=== PATIENT | male | born 1950 | race Caucasian/White ===

== ENCOUNTER → 2016-12-22 | Outpatient (CLI) | payer MEDICARE ==
[~2016-12-22] MED LIST: OMNIPAQUE 350 MG/ML, 75ML BOTTLE ONE
== END | disposition home or self-care (01) ==
LOC: CFH 08:42
PROVIDERS: ATTEND Internal Medicine Pulmonary Disease
DX: I48.0 Paroxysmal atrial fibrillation (principal); I27.2 Other secondary pulmonary hypertension; G47.30 Sleep apnea, unspecified; Q89.09 Congenital malformations of spleen; R63.4 Abnormal weight loss
CPT/HCPCS: 71260; Q9967

== ENCOUNTER → 2017-02-05 | Outpatient (CLI) | payer MEDICARE ==
[~2017-02-05] MED LIST changes: +ACET-1600 PO; +ASPI-496 PO; +ATOR10TA PO; +CHLO25TA PO; +GABA300C10 PO; +LOSA25TA5 PO; +MELO-184 PO; +MULT-208 PO; -OMNIPAQUE 350 MG/ML, 75ML BOTTLE ONE; +PANT40TA5 PO; +PARO20TA4 PO; +SITA25TA PO; +TRAM50TA2 PO; +VERA180C2 PO
== END | disposition home or self-care (01) ==
LOC: CFH 10:35
PROVIDERS: ATTEND Family Medicine
DX: Z13.6 Encounter for screening for cardiovascular disorders (principal); I77.811 Abdominal aortic ectasia
CPT/HCPCS: 93978

== ENCOUNTER → 2017-03-05 | Outpatient (CLI) | payer MEDICARE | END | disposition home or self-care (01) | LOC: CVU 08:58 | PROVIDERS: ATTEND Internal Medicine Cardiovascular Disease | DX: I48.0 Paroxysmal atrial fibrillation (principal); I10 Essential (primary) hypertension | CPT/HCPCS: 93306 ==

== ENCOUNTER 2017-08-13 14:04 | Inpatient (IN) | payer MEDICARE ==
[~2017-08-13] VITALS: Ht 185.4 cm; Wt 113.0 kg
[~2017-08-13 14:04] MED LIST changes: -MELO-184 PO; +MELO15TA24 PO
[2017-08-13 15:18] LABS: BASOPHILS # (AUTO) 0.03 x10^3/uL (0-0.1); BASOPHILS % (AUTO) 0 % (0-1); EOSINOPHILS # (AUTO) 0.27 x10^3/uL (0-0.4); EOSINOPHILS % (AUTO) 4 % (1-7); LYMPHOCYTES # (AUTO) 1.79 x10^3/uL (1-3.4); LYMPHOCYTES % (AUTO) 24 % (22-44); MD NO; MEAN CORPUSCULAR HEMOGLOBIN 28.7 pg (27.5-34.5); MEAN CORPUSCULAR VOLUME 84.4 fL (81-97); MEAN PLATELET VOLUME 9.9 fL (7.4-10.4); MONOCYTES % (AUTO) 10 % (2-9); NEUTROPHILS % (AUTO) 62 % (42-75); PLATELET COUNT 219 x10^3/uL (130-400); RED BLOOD COUNT 5.22 x10^6/uL (4.38-5.82); RED CELL DISTRIBUTION WIDTH 14.2 % (9.4-14.8)
[2017-08-13] MEDS ORDERED: OXYC1TAB7 PO (15:26)
[2017-08-13] MEDS ORDERED: KRIL500C PO (15:26)
[2017-08-13] MEDS ORDERED: CYCL-259 PO (15:26)
[2017-08-13] MEDS ORDERED: LACT1CAP20 PO (15:26)
[2017-08-13 16:30] LABS: ALBUMIN 3.8 g/dL (3.4-5.0); CALCIUM 9.1 mg/dL (8.5-10.1); CHLORIDE 103 mmol/L (98-107)
[2017-08-13 16:34] LABS: ALANINE AMINOTRANSFERASE 35 U/L (12-78); ALKALINE PHOSPHATASE 97 U/L (45-117); ANION GAP 10 mmol/L (5-15); BILIRUBIN,TOTAL 0.5 mg/dL (0.2-1.0); CREATININE 1.11 mg/dL (0.7-1.3); TOTAL PROTEIN 8.2 g/dL (6.4-8.2)
[2017-08-13] MEDS ORDERED: GADOBUTROL 10 MMOL/10 ML PFS ONE (17:37)
[2017-08-13] MEDS ORDERED: ONDANSETRON ODT 4 MG PO PRN (22:00)
[2017-08-13] MEDS ORDERED: ACETAMINOPHEN 325 MG TABLET PO PRN (22:00)
[2017-08-13] MEDS ORDERED: TEMAZEPAM 15 MG CAPSULE PO PRN (22:00)
[2017-08-13] MEDS ORDERED: ENALAPRILAT 1.25 MG/ML, 2ML IVPush PRN (22:00)
[2017-08-13] MEDS ORDERED: CYCLOBENZAPRINE 10 MG TABLET PO PRN (22:00)
[2017-08-13] MEDS ORDERED: DOCUSATE 100 MG CAPSULE PO PRN (22:00)
[2017-08-13] MEDS: PANTOPROZOLE 40MG TABLET PO SCH (23:31)
[2017-08-13] MEDS: GABAPENTIN 300 MG CAPSULE PO SCH (23:31)
[2017-08-13] MEDS: ENOXAPARIN 40 MG/0.4 ML SQ SCH (23:31)
[2017-08-13] MEDS: ATORVASTATIN 10 MG TABLET PO SCH (23:31)
[2017-08-13 23:45] VITALS: BP 113/75
[2017-08-14] VITALS (9 sets, daily range): BP systolic 103–130; BP diastolic 69–83
[2017-08-14] MEDS ORDERED: GADOBUTROL 10 MMOL/10 ML VIAL ONE (11:18)
[2017-08-14] MEDS: OMEGA-3/FISH OIL CAPSULE PO SCH (11:19)
[2017-08-14] MEDS: PAROXETINE 20 MG TABLET PO SCH (11:19)
[2017-08-14] MEDS: MULTIVITAMIN 1 TABLET PO SCH (11:19)
[2017-08-14] MEDS: ASPIRIN 81 MG TABLET EC PO SCH (11:20)
[2017-08-14] MEDS: PANTOPROZOLE 40MG TABLET PO SCH ×2 (11:20→21:09)
[2017-08-14] MEDS: VERAPAMIL ER 180MG TABLET.ER PO SCH (11:20)
[2017-08-14] MEDS: LOSARTAN 25MG TABLET PO SCH (11:20)
[2017-08-14] MEDS: GABAPENTIN 300 MG CAPSULE PO SCH ×3 (11:21→21:09)
[2017-08-14] MEDS: CHLORTHALIDONE 25 MG TABLET PO SCH (11:21)
[2017-08-14] MEDS: MELOXICAM 15 MG TABLET PO SCH (11:21)
[2017-08-14] MEDS: LACTOBACILLUS CHEW TABLET PO SCH (11:21)
[2017-08-14 16:48] LABS: CLOSTRIDIUM DIFFICILE ANTIGEN NEGATIVE; CLOSTRIDIUM DIFFICILE TOXIN NEGATIVE (Negative)
[2017-08-14] MEDS ORDERED: GADOBUTROL 10 MMOL/10 ML PFS ONE (18:29)
[2017-08-14] MEDS: ATORVASTATIN 10 MG TABLET PO SCH (21:09)
[2017-08-14] MEDS: ENOXAPARIN 40 MG/0.4 ML SQ SCH (21:09)
[2017-08-15 03:46] VITALS: BP 112/74
[2017-08-15 05:13] LABS: ANION GAP 10 mmol/L (5-15); CALCIUM 8.4 mg/dL (8.5-10.1); CHLORIDE 104 mmol/L (98-107); CREATININE 1.03 mg/dL (0.7-1.3)
[2017-08-15] MEDS ORDERED: POTASSIUM CHLORIDE 20 MEQ TAB.ER.PRT PO ONE (07:30)
[2017-08-15 08:19] VITALS: BP 118/79
[2017-08-15 08:20] VITALS: BP 103/66
[2017-08-15 08:21] VITALS: BP 114/79
[2017-08-15] MEDS: VERAPAMIL ER 180MG TABLET.ER PO SCH (08:27)
[2017-08-15] MEDS: MULTIVITAMIN 1 TABLET PO SCH (08:28)
[2017-08-15] MEDS: PAROXETINE 20 MG TABLET PO SCH (08:28)
[2017-08-15] MEDS: OMEGA-3/FISH OIL CAPSULE PO SCH (08:28)
[2017-08-15] MEDS: ASPIRIN 81 MG TABLET EC PO SCH (08:28)
[2017-08-15] MEDS: LOSARTAN 25MG TABLET PO SCH (08:28)
[2017-08-15] MEDS: GABAPENTIN 300 MG CAPSULE PO SCH (08:28)
[2017-08-15] MEDS: LACTOBACILLUS CHEW TABLET PO SCH (08:28)
[2017-08-15] MEDS: PANTOPROZOLE 40MG TABLET PO SCH (08:28)
[2017-08-15] MEDS: MELOXICAM 15 MG TABLET PO SCH (08:28)
[2017-08-15] MEDS: CHLORTHALIDONE 25 MG TABLET PO SCH (08:31)
[2017-08-15 09:45] LABS: MEAN CORPUSCULAR HEMOGLOBIN 28.2 pg (27.5-34.5); MEAN CORPUSCULAR HGB CONC 33.5 g/dL (33.2-36.2); MEAN CORPUSCULAR VOLUME 83.9 fL (81-97); RED BLOOD COUNT 4.79 x10^6/uL (4.38-5.82); RED CELL DISTRIBUTION WIDTH 14.5 % (9.4-14.8)
[2017-08-15 09:46] LABS: MD YES
[2017-08-15 09:48] LABS: EOS#(MANUAL) 0.32 x10^3/uL (0.0-0.4); EOS% (MANUAL) 4 % (1-7); LYMPH#(MANUAL) 1.66 x10^3/uL (1-3.4); LYMPHS% (MANUAL) 21 % (22-44); MONOS#(MANUAL) 0.16 x10^3/uL (0.3-2.7); MONOS% (MANUAL) 2 % (2-9); SEG#(MANUAL) 5.77 x10^3/uL (1.8-6.8); SEGS% (MANUAL) 73 % (42-75)
[2017-08-15 09:49] LABS: <RBC MORPHOLOGY> NORMAL
[2017-08-15 09:56] LABS: <PLATELET ESTIMATE> ADEQUATE
[2017-08-15] MEDS ORDERED: TRAM50TA2 PO (12:12)
[2017-08-15] MEDS ORDERED: PNEUMOCOCCAL 23 VACCINE IM-VACC ONE (12:30)
[2017-08-15 13:03] VITALS: BP 122/82
== END 2017-08-15 14:22 | disposition home or self-care (01) | DRG 920 ==
LOC: ED 19:57 → EDIP 22:39 → 3NE 23:05 → DCLOUNGE 08-15 14:10
PROVIDERS: ADMIT Family Medicine; ATTEND Family Medicine
DX: G97.63 Postprocedural seroma of a nervous system organ or structure following a nervous system procedure (principal); F33.0 Major depressive disorder, recurrent, mild; I48.2 Chronic atrial fibrillation; E11.69 Type 2 diabetes mellitus with other specified complication; G62.9 Polyneuropathy, unspecified; E11.40 Type 2 diabetes mellitus with diabetic neuropathy, unspecified; I48.91 Unspecified atrial fibrillation; E78.5 Hyperlipidemia, unspecified; G96.0 Cerebrospinal fluid leak; R27.0 Ataxia, unspecified; M51.37 Other intervertebral disc degeneration, lumbosacral region; I11.9 Hypertensive heart disease without heart failure; E87.6 Hypokalemia; K21.9 Gastro-esophageal reflux disease without esophagitis; Z82.49 Family history of ischemic heart disease and other diseases of the circulatory system; Z87.891 Personal history of nicotine dependence; Z82.61 Family history of arthritis; E86.0 Dehydration; K52.9 Noninfective gastroenteritis and colitis, unspecified
CPT/HCPCS: 36415; 70544; 70549; 70551; 70552; 72158; 80048; 80053; 85025; 87324; 90732; 93005; 99285; A9585; J1650

== ENCOUNTER 2018-08-14 15:37 | Observation (INO) | payer MEDICARE ==
[~2018-08-14] VITALS: Ht 185.4 cm; Wt 112.5 kg
[~2018-08-14 15:37] MED LIST changes: +CYCL-259 PO; +KRIL500C PO; +LACT1CAP20 PO; +LOSA25TA25 PO; -LOSA25TA5 PO; +OXYC1TAB7 PO
--- NOTE | 2018-08-14 16:10 | NUR ---
ERP at BS for consult
[2018-08-14 16:25] LABS: ALBUMIN 3.8 g/dL (3.4-5.0); ANION GAP 10 mmol/L (5-15); CALCIUM 9.5 mg/dL (8.5-10.1); CHLORIDE 104 mmol/L (98-107)
[2018-08-14 16:30] LABS: ALANINE AMINOTRANSFERASE 28 U/L (12-78); ALKALINE PHOSPHATASE 129 U/L (45-117); BILIRUBIN,TOTAL 0.5 mg/dL (0.2-1.0); CREATININE 1.14 mg/dL (0.7-1.3); TOTAL PROTEIN 7.9 g/dL (6.4-8.2); TROPONIN I < 0.015 ng/mL (0.000-0.045)
[2018-08-14 16:41] LABS: INTERNATIONAL NORMALIZED RATIO 0.98 (0.93-1.1); PROTHROMBIN TIME 10.4 Seconds (9.6-11.5)
[2018-08-14] MEDS ORDERED: METF500T17 PO (17:22)
--- NOTE | 2018-08-14 18:04 | NUR ---
pt laying on gurney awake & calm, responds approp to staff, NAD, comfort measures provided, call light within reach.
--- NOTE | 2018-08-14 18:15 | NUR ---
pt to CTA
--- NOTE | 2018-08-14 18:25 | NUR ---
pt returned from CTA, family returned to BS.
[2018-08-14] MEDS ORDERED: OMNIPAQUE 350 MG/ML, 100ML BOTTLE ONE (18:36)
[2018-08-14] MEDS ORDERED: OXYcodone/APAP 5/325MG TABLET ONE (18:42)
--- NOTE | 2018-08-14 18:54 | NUR ---
REPORT GIVEN TO LEAH
[2018-08-14] MEDS ORDERED: OXYcodone/APAP 5/325MG TABLET PO ONE (19:00)
--- NOTE | 2018-08-14 19:00 | NUR ---
RECEIVED REPORT FROM CESAR ESCOBEDO. PT RESTING CALMLY IN BED, FAMILY AT BEDSIDE. PT LABS AND CTA REMAIN PENDING. PT AWARE OF PENDING ADMIT. PT ON ALL MONITORS, VSS. WILL CONTINUE TO MONITOR.
--- NOTE | 2018-08-14 19:17 | NUR ---
[facility] PENDING, LAB CONTACTED, STATED THEY ARE ACTIVELY WORKING ON IT, SHOULD RESULT SHORTLY.
[2018-08-14 19:19] LABS: MEAN CORPUSCULAR HEMOGLOBIN 28.3 pg (27.5-34.5); MEAN CORPUSCULAR HGB CONC 33.9 g/dL (33.2-36.2); MEAN CORPUSCULAR VOLUME 83.5 fL (81-97); RED BLOOD COUNT 4.55 x10^6/uL (4.38-5.82); RED CELL DISTRIBUTION WIDTH 14.5 % (9.4-14.8)
[2018-08-14 19:20] LABS: MD YES
[2018-08-14 19:22] LABS: EOS#(MANUAL) 0.07 x10^3/uL (0.0-0.4); EOS% (MANUAL) 1 % (1-7); LYMPH#(MANUAL) 1.43 x10^3/uL (1-3.4); LYMPHS% (MANUAL) 22 % (22-44); MONOS#(MANUAL) 0.39 x10^3/uL (0.3-2.7); MONOS% (MANUAL) 6 % (2-9); SEG#(MANUAL) 4.62 x10^3/uL (1.8-6.8); SEGS% (MANUAL) 71 % (42-75)
[2018-08-14 19:23] LABS: <RBC MORPHOLOGY> NORMAL
[2018-08-14 20:22] LABS: <PLATELET ESTIMATE> ADEQUATE; <PLT MORPHOLOGY> NORMAL PLT MORPH; MEAN PLATELET VOLUME 8.5 fL (7.4-10.4)
--- NOTE | 2018-08-14 20:24 | NUR ---
ATTEMPTED TO CALL REPORT TO ARJUN RN 5TH FLOOR. RN UNAVAILABLE, STATED WOULD CALL BACK IN 5 MIN
--- NOTE | 2018-08-14 20:41 | NUR ---
REPORT TO ARJUN ESCOBEDO FOR ROOM 501
[2018-08-14 21:00] VITALS: BP 136/83
[2018-08-14] MEDS ORDERED: PAROXETINE 20 MG TABLET PO SCH (21:00)
[2018-08-14] MEDS: SODIUM CHLORIDE 0.9% 1,000 ML IV SCH (22:09)
[2018-08-14] MEDS ORDERED: OXYcodone IR 5MG TABLET PO PRN (22:30)
[2018-08-14] MEDS ORDERED: ONDANSETRON ODT 4 MG PO PRN (22:30)
[2018-08-14] MEDS ORDERED: POTASSIUM CHLORIDE 20 MEQ TAB.ER.PRT PO ONE (22:30)
[2018-08-14] MEDS ORDERED: PROMETHAZINE 25 MG/ML, 1ML IM PRN (22:30)
[2018-08-14] MEDS ORDERED: ATORVASTATIN 10 MG TABLET PO SCH (22:30)
[2018-08-14] MEDS ORDERED: BISACODYL 10 MG SUPP PR PRN (22:30)
[2018-08-14] MEDS ORDERED: NITROGLYCERIN 0.4 MG BOTTLE (25 TABS) SL PRN (22:30)
[2018-08-14] MEDS ORDERED: ONDANSETRON 2MG/ML, 2ML IVPush PRN (22:30)
[2018-08-14] MEDS ORDERED: morphine SULFATE 10 MG/ML, 1ML IVPush PRN (22:30)
[2018-08-14] MEDS ORDERED: hydrALAzine 20 MG/ML, 1ML IVPush PRN (22:30)
[2018-08-14] MEDS ORDERED: POLYETHYLENE GLYCOL 17 GM PACKET PO PRN (22:30)
[2018-08-14] MEDS ORDERED: DOCUSATE 100 MG CAPSULE PO PRN (22:30)
[2018-08-14] MEDS ORDERED: ACETAMINOPHEN 325 MG TABLET PO PRN (22:30)
[2018-08-14] MEDS ORDERED: OXYcodone/APAP 5/325MG TABLET PO PRN (23:00)
[2018-08-14 23:37] LABS: HEMOGLOBIN A1C 6.4 % (4.2-6.3)
[2018-08-14 23:40] LABS: FREE T4 (FREE THYROXINE) 0.84 ng/dL (0.76-1.46); THYROID STIMULATING HORMONE 0.755 mIU/L (0.358-3.740)
[2018-08-14] MEDS: GABAPENTIN 300 MG CAPSULE PO SCH (23:41)
[2018-08-14] MEDS: HEPARIN 5,000 UNITS/ML, 1ML SQ SCH (23:42)
[2018-08-15 01:14] VITALS: BP 123/73
[2018-08-15 01:44] LABS: TROPONIN I < 0.015 ng/mL (0.000-0.045)
[2018-08-15 05:15] LABS: CALCIUM 8.4 mg/dL (8.5-10.1); CHLORIDE 105 mmol/L (98-107)
[2018-08-15 05:18] LABS: MICROSCOPIC NOT IND
[2018-08-15 05:24] LABS: ALANINE AMINOTRANSFERASE 24 U/L (12-78); ALBUMIN 3.3 g/dL (3.4-5.0); ALKALINE PHOSPHATASE 113 U/L (45-117); ANION GAP 9 mmol/L (5-15); BILIRUBIN,TOTAL 0.3 mg/dL (0.2-1.0); CHOL/HDL RATIO 3.5; CHOLESTEROL, TOTAL 123 mg/dL (140-239); CREATININE 1.08 mg/dL (0.7-1.3); HDL CHOL % 28 % (26-37); HDL CHOLESTEROL (DIRECT) 35 mg/dL (40-60); LDL CHOLESTEROL,CALCULATED 14 mg/dL (54-169); LDL/HDL RATIO 0.4 (0.5-3.0); TOTAL PROTEIN 6.7 g/dL (6.4-8.2); TRIGLYCERIDES 368 mg/dL (50-200); TROPONIN I < 0.015 ng/mL (0.000-0.045); VLDL CHOLESTEROL 74 mg/dL (0-25)
[2018-08-15 05:25] LABS: CULTURE INDICATED? NO
[2018-08-15] MEDS ORDERED: ASPIRIN 81 MG TABLET EC PO SCH (06:00)
[2018-08-15] MEDS ORDERED: PANTOPROZOLE 40MG TABLET PO SCH (06:00)
[2018-08-15] MEDS ORDERED: ASPIRIN 325 MG TABLET EC PO SCH (06:00)
[2018-08-15 07:24] LABS: MEAN CORPUSCULAR HEMOGLOBIN 28.9 pg (27.5-34.5); MEAN CORPUSCULAR HGB CONC 34.6 g/dL (33.2-36.2); MEAN CORPUSCULAR VOLUME 83.6 fL (81-97); RED BLOOD COUNT 4.21 x10^6/uL (4.38-5.82); RED CELL DISTRIBUTION WIDTH 14.1 % (9.4-14.8)
[2018-08-15 07:31] LABS: BASOPHILS # (AUTO) 0.05 x10^3/uL (0-0.1); BASOPHILS % (AUTO) 1 % (0-1); EOSINOPHILS # (AUTO) 0.36 x10^3/uL (0-0.4); EOSINOPHILS % (AUTO) 7 % (1-7); LYMPHOCYTES # (AUTO) 2.25 x10^3/uL (1-3.4); LYMPHOCYTES % (AUTO) 41 % (22-44); MD SCAN; MONOCYTES # (AUTO) 0.44 x10^3/uL (0.2-0.8); MONOCYTES % (AUTO) 8 % (2-9); NEUTROPHILS # (AUTO) 2.44 x10^3/uL (1.8-6.8); NEUTROPHILS % (AUTO) 44 % (42-75)
[2018-08-15] MEDS ORDERED: REGADENOSON 0.4 MG/5 ML SYRINGE ONE (08:29)
[2018-08-15 08:30] VITALS: BP 111/74
[2018-08-15] MEDS: HEPARIN 5,000 UNITS/ML, 1ML SQ SCH ×2 (08:42→16:00)
[2018-08-15] MEDS: GABAPENTIN 300 MG CAPSULE PO SCH (08:43)
[2018-08-15] MEDS: INSULIN LISPRO 100 UNITS/ML, PEN SQ-INSULIN SCH ×3 (08:44→16:00)
[2018-08-15] MEDS: SODIUM CHLORIDE 0.9% 1,000 ML IV SCH (08:44)
[2018-08-15] MEDS ORDERED: LACTOBACILLUS CHEW TABLET PO SCH (09:00)
[2018-08-15] MEDS ORDERED: CHLORTHALIDONE 25 MG TABLET PO SCH (09:00)
[2018-08-15] MEDS ORDERED: TEMPLATE NON-FORMULARY MED. (Krill Oil 500 MG) PO SCH (09:00)
[2018-08-15] MEDS ORDERED: VERAPAMIL ER 180MG TABLET.ER PO SCH (09:00)
[2018-08-15] MEDS ORDERED: LOSARTAN 25MG TABLET PO SCH (09:00)
[2018-08-15] MEDS ORDERED: MULTIVITAMIN 1 TABLET PO SCH (09:00)
[2018-08-15] MEDS ORDERED: MAGNESIUM SULFATE PMX 2GM/50ML 50 ML IV ONE (10:00)
[2018-08-15] MEDS ORDERED: POTASSIUM CHLORIDE 20 MEQ TAB.ER.PRT PO ONE (10:00)
[2018-08-15 10:06] LABS: MEAN CORPUSCULAR HGB CONC 33.2 g/dL (33.2-36.2); MEAN CORPUSCULAR VOLUME 84.1 fL (81-97); RED BLOOD COUNT 4.38 x10^6/uL (4.38-5.82); RED CELL DISTRIBUTION WIDTH 14.6 % (9.4-14.8)
[2018-08-15 10:07] LABS: BASOPHILS # (AUTO) 0.04 x10^3/uL (0-0.1); BASOPHILS % (AUTO) 1 % (0-1); EOSINOPHILS # (AUTO) 0.36 x10^3/uL (0-0.4); EOSINOPHILS % (AUTO) 6 % (1-7); LYMPHOCYTES # (AUTO) 2.26 x10^3/uL (1-3.4); LYMPHOCYTES % (AUTO) 39 % (22-44); MD SCAN; MONOCYTES # (AUTO) 0.46 x10^3/uL (0.2-0.8); MONOCYTES % (AUTO) 8 % (2-9); NEUTROPHILS # (AUTO) 2.67 x10^3/uL (1.8-6.8); NEUTROPHILS % (AUTO) 46 % (42-75)
[2018-08-15 13:15] VITALS: BP 112/73
== END 2018-08-15 16:45 | disposition home or self-care (01) ==
LOC: ED 17:03 → EDIP 19:45 → INTOOBSV 19:45 → 5SO 20:52 → DCLOUNGE 08-15 16:33
PROVIDERS: ADMIT Internal Medicine; ATTEND Internal Medicine
DX: R07.89 Other chest pain (principal); E11.40 Type 2 diabetes mellitus with diabetic neuropathy, unspecified; D68.69 Other thrombophilia; E87.6 Hypokalemia; E78.5 Hyperlipidemia, unspecified; F41.9 Anxiety disorder, unspecified; I11.9 Hypertensive heart disease without heart failure; I48.2 Chronic atrial fibrillation; K21.9 Gastro-esophageal reflux disease without esophagitis; M47.9 Spondylosis, unspecified; Z87.891 Personal history of nicotine dependence
CPT/HCPCS: 36415; 71045; 71275; 78452; 80053; 80061; 81003; 82962; 83036; 83735; 84439; 84443; 84484; 85025; 85379; 85610; 85730; 87040; 93005; 93017; 93306; 96365; 96366; 96372; 99284; A9502; C9898; G0378; J1644; J2785; J3475; J7030; Q9967; 99285

== ENCOUNTER 2018-12-09 13:56 | Emergency (ER) | payer MEDICARE ==
[~2018-12-09] VITALS: Ht 185.4 cm; Wt 118.1 kg
[~2018-12-09 13:56] MED LIST changes: +METF500T17 PO
[2018-12-09] MEDS ORDERED: SODIUM CHLORIDE FLUSH 10ML SYR IVF ONE (14:30)
--- NOTE | 2018-12-09 14:34 | NUR ---
Assumed care of patient. C/O increased HR and SOB today. Patient states, "I can feel that I'm having PVCs". Patient states his HR is normally in the 60s, but has been mostly 80-90s today. Hx afib with RVR and PSVT. Placed on NIBP, pulse ox and pvc monitor. Will continue to monitor.
[2018-12-09 14:36] LABS: ALBUMIN 3.8 g/dL (3.4-5.0); ANION GAP 12 mmol/L (5-15); CALCIUM 9.2 mg/dL (8.5-10.1); CHLORIDE 105 mmol/L (98-107)
[2018-12-09 14:40] LABS: CREATININE 1.38 mg/dL (0.7-1.3)
[2018-12-09 14:41] LABS: ALANINE AMINOTRANSFERASE 34 U/L (12-78); ALKALINE PHOSPHATASE 91 U/L (45-117); BILIRUBIN,TOTAL 0.5 mg/dL (0.2-1.0); TOTAL PROTEIN 7.5 g/dL (6.4-8.2); TROPONIN I < 0.015 ng/mL (0.000-0.045)
[2018-12-09] MEDS ORDERED: DILT180C72 PO (14:51)
[2018-12-09] MEDS ORDERED: RIVA20TA PO (14:51)
[2018-12-09 15:24] LABS: MEAN CORPUSCULAR HEMOGLOBIN 29.1 pg (27.5-34.5); MEAN CORPUSCULAR HGB CONC 33.7 g/dL (33.2-36.2); MEAN CORPUSCULAR VOLUME 86.4 fL (81-97); MEAN PLATELET VOLUME 10.9 fL (7.4-10.4); PLATELET COUNT 203 x10^3/uL (130-400); RED BLOOD COUNT 5.19 x10^6/uL (4.38-5.82); RED CELL DISTRIBUTION WIDTH 15.3 % (9.4-14.8)
[2018-12-09 15:28] LABS: BASOPHILS # (AUTO) 0.03 x10^3/uL (0-0.1); BASOPHILS % (AUTO) 0 % (0-1); EOSINOPHILS # (AUTO) 0.25 x10^3/uL (0-0.4); EOSINOPHILS % (AUTO) 3 % (1-7); LYMPHOCYTES # (AUTO) 2.17 x10^3/uL (1-3.4); LYMPHOCYTES % (AUTO) 28 % (22-44); MD SCAN; MONOCYTES # (AUTO) 0.66 x10^3/uL (0.2-0.8); MONOCYTES % (AUTO) 8 % (2-9); NEUTROPHILS # (AUTO) 4.77 x10^3/uL (1.8-6.8); NEUTROPHILS % (AUTO) 61 % (42-75)
[2018-12-09 16:37] VITALS: BP 135/81
--- NOTE | 2018-12-09 16:47 | NUR ---
TASK RN: PROVIDER ASKED TO UPDATE FAMILY.
--- NOTE | 2018-12-09 17:16 | NUR ---
Patient/Caregiver given discharge instructions and they have confirmed that they understand the instructions. Patient ambulatory with steady gait.
== END 2018-12-09 17:16 | disposition home or self-care (01) ==
LOC: ED 17:05
DX: J18.9 Pneumonia, unspecified organism (principal); I10 Essential (primary) hypertension; E11.9 Type 2 diabetes mellitus without complications; I48.91 Unspecified atrial fibrillation
CPT/HCPCS: 36415; 71045; 80053; 84484; 85025; 93005; 99284

== ENCOUNTER 2018-12-10 23:39 | Inpatient (IN) | payer MEDICARE ==
[~2018-12-10] VITALS: Ht 185.4 cm; Wt 114.7 kg
[~2018-12-10 23:39] MED LIST changes: +DILT180C72 PO; +RIVA20TA PO
[2018-12-11] MEDS ORDERED: SODIUM CHLORIDE FLUSH 10ML SYR IVF ONE (00:30)
--- NOTE | 2018-12-11 00:36 | NUR ---
Pt reports feeling palpitations, pt on monitor, in and out of a-fib, PA and aware. Pt anticoagulated, pt states "Im very sensitive to the feeling and it makes me nervous at home" Pt reports anxiety from feeling himself go in and out of a-fib, hx of cardioversion, pt denies pain.
[2018-12-11 00:41] LABS: ALANINE AMINOTRANSFERASE 34 U/L (12-78); ANION GAP 13 mmol/L (5-15); CALCIUM 9.2 mg/dL (8.5-10.1); CHLORIDE 101 mmol/L (98-107); CREATININE 1.24 mg/dL (0.7-1.3)
[2018-12-11 00:45] LABS: MEAN CORPUSCULAR HGB CONC 32.1 g/dL (33.2-36.2); MEAN CORPUSCULAR VOLUME 87.1 fL (81-97); MEAN PLATELET VOLUME 10.2 fL (7.4-10.4); PLATELET COUNT 162 x10^3/uL (130-400); RED BLOOD COUNT 5.17 x10^6/uL (4.38-5.82); RED CELL DISTRIBUTION WIDTH 15.1 % (9.4-14.8)
[2018-12-11 00:46] LABS: ALKALINE PHOSPHATASE 86 U/L (45-117); BILIRUBIN,TOTAL 0.2 mg/dL (0.2-1.0); TOTAL PROTEIN 7.6 g/dL (6.4-8.2); TROPONIN I < 0.015 ng/mL (0.000-0.045)
[2018-12-11] MEDS ORDERED: POTASSIUM CHLORIDE 20 MEQ TAB.ER.PRT PO ONE (01:00)
[2018-12-11 01:11] LABS: BASOPHILS # (AUTO) 0.04 x10^3/uL (0-0.1); BASOPHILS % (AUTO) 1 % (0-1); EOSINOPHILS # (AUTO) 0.24 x10^3/uL (0-0.4); EOSINOPHILS % (AUTO) 3 % (1-7); LYMPHOCYTES # (AUTO) 2.26 x10^3/uL (1-3.4); LYMPHOCYTES % (AUTO) 30 % (22-44); MD SCAN; MONOCYTES # (AUTO) 0.53 x10^3/uL (0.2-0.8); MONOCYTES % (AUTO) 7 % (2-9); NEUTROPHILS # (AUTO) 4.51 x10^3/uL (1.8-6.8); NEUTROPHILS % (AUTO) 59 % (42-75)
[2018-12-11] MEDS ORDERED: POTASSIUM CHLORIDE 20 MEQ TAB.ER.PRT ONE (01:36)
[2018-12-11] MEDS ORDERED: ASPIRIN 81 MG TABLET CHEW ONE (01:51)
--- NOTE | 2018-12-11 01:54 | NUR ---
Pt to restroom with assignment desk editor, ambulates with steady gait.
[2018-12-11] MEDS ORDERED: ASPIRIN 81 MG TABLET CHEW PO ONE (02:00)
--- NOTE | 2018-12-11 02:06 | NUR ---
Report to Stephanie ESCOBEDO, pt ready for transport.
[2018-12-11] MEDS ORDERED: CHOL5000 PO (02:37)
[2018-12-11 02:52] VITALS: BP 135/85
[2018-12-11] MEDS ORDERED: POTASSIUM CHLORIDE 20 MEQ in SODIUM CHLORIDE 0.9% 250 ML IV ONE (03:00)
[2018-12-11] MEDS ORDERED: POTASSIUM CHLORIDE 20 MEQ TAB.ER.PRT PO SCH (08:00)
[2018-12-11 08:05] VITALS: BP 115/81
[2018-12-11] MEDS: INSULIN LISPRO 100 UNITS/ML, PEN SQ-INSULIN SCH ×2 (08:05→11:30)
[2018-12-11 08:31] LABS: ANION GAP 8 mmol/L (5-15); CHLORIDE 106 mmol/L (98-107); CREATININE 1.07 mg/dL (0.7-1.3)
[2018-12-11 08:32] LABS: TROPONIN I < 0.015 ng/mL (0.000-0.045)
[2018-12-11] MEDS ORDERED: DILTIAZEM CD 180 MG CAP.ER.24H PO SCH (09:00)
[2018-12-11] MEDS ORDERED: LOSARTAN 25MG TABLET PO SCH (09:00)
[2018-12-11] MEDS ORDERED: RIVAROXABAN 20 MG TABLET PO SCH (09:00)
[2018-12-11] MEDS ORDERED: GABAPENTIN 300 MG CAPSULE PO SCH (09:00)
[2018-12-11] MEDS ORDERED: CHLORTHALIDONE 25 MG TABLET PO SCH (09:00)
[2018-12-11] MEDS ORDERED: ASPIRIN 81 MG TABLET EC PO SCH (09:00)
[2018-12-11] MEDS ORDERED: DILTIAZEM 30 MG TABLET PO PRN (11:00)
[2018-12-11] MEDS ORDERED: POTA20TA6 PO (11:02)
[2018-12-11] MEDS ORDERED: DILT30TA33 PO (15:06)
[2018-12-11] MEDS ORDERED: PAROXETINE 10 MG TABLET PO SCH (21:00)
[2018-12-11] MEDS ORDERED: ATORVASTATIN 10 MG TABLET PO SCH (21:00)
== END 2018-12-11 12:30 | disposition home or self-care (01) | DRG 880 ==
LOC: ED 23:53 → EDIP 12-11 01:35 → 5SO 12-11 02:30 → DCLOUNGE 12-11 12:20
PROVIDERS: ADMIT Internal Medicine; ATTEND Internal Medicine
DX: F41.9 Anxiety disorder, unspecified (principal); D68.69 Other thrombophilia; E87.6 Hypokalemia; R00.2 Palpitations; I49.3 Ventricular premature depolarization; J44.9 Chronic obstructive pulmonary disease, unspecified; E11.40 Type 2 diabetes mellitus with diabetic neuropathy, unspecified; E78.5 Hyperlipidemia, unspecified; G47.33 Obstructive sleep apnea (adult) (pediatric); I10 Essential (primary) hypertension; I48.2 Chronic atrial fibrillation; I71.2 Thoracic aortic aneurysm, without rupture; K21.9 Gastro-esophageal reflux disease without esophagitis; Z79.01 Long term (current) use of anticoagulants; Z79.82 Long term (current) use of aspirin; Z79.899 Other long term (current) drug therapy; Z87.891 Personal history of nicotine dependence
CPT/HCPCS: 36415; 71046; 80048; 80053; 82962; 83735; 83880; 84443; 84484; 85025; 85651; 93005; 99285; J3480; J7050

== ENCOUNTER 2019-05-12 09:21 | Outpatient (CLI) | payer MEDICARE ==
[~2019-05-12 09:21] MED LIST changes: +CHOL5000 PO; +DILT30TA33 PO; +FENO160T PO; +POTA20TA6 PO; +WARF5TAB PO
== END 2019-05-12 23:59 | disposition home or self-care (01) ==
LOC: CFH 09:21
PROVIDERS: ATTEND Internal Medicine
DX: K11.1 Hypertrophy of salivary gland (principal)
CPT/HCPCS: 76536

== ENCOUNTER → 2019-09-30 | Outpatient (CLI) | payer MEDICARE ==
[~2019-09-30] MED LIST changes: +DRY EYE RELIEF EACHEYE; +LACT1CAP37 PO; +MAGN400T9 PO
[2019-09-30 10:10] LABS: ALANINE AMINOTRANSFERASE 32 U/L (12-78); ALBUMIN 3.7 g/dL (3.4-5.0); ANION GAP 5 mmol/L (5-15); CALCIUM 9.1 mg/dL (8.5-10.1); CHLORIDE 106 mmol/L (98-107); CREATININE 1.47 mg/dL (0.7-1.3); INTERNATIONAL NORMALIZED RATIO 1.9 (0.93-1.1); PROTHROMBIN TIME 20.3 Seconds (9.6-11.5)
[2019-09-30 10:13] LABS: ALKALINE PHOSPHATASE 69 U/L (45-117); BILIRUBIN,TOTAL 0.3 mg/dL (0.2-1.0); TOTAL PROTEIN 7.6 g/dL (6.4-8.2)
== END | disposition home or self-care (01) ==
LOC: STAR 09:02
PROVIDERS: ATTEND Orthopaedic Surgery
DX: Z01.818 Encounter for other preprocedural examination (principal); M16.12 Unilateral primary osteoarthritis, left hip
CPT/HCPCS: 36415; 80053; 83036; 85610; 85730; 87081; 87806; 93005; G0475

== ENCOUNTER 2020-02-22 12:35 | Emergency (ER) | payer MEDICARE ==
[~2020-02-22] VITALS: Ht 185.4 cm; Wt 121.0 kg
[~2020-02-22 12:35] MED LIST changes: -WARF5TAB PO; +WARF5TAB2 PO
[2020-02-22] MEDS ORDERED: FLUORESCEIN OPHTHALMIC 1 MG STRIP ONE (13:07)
[2020-02-22] MEDS ORDERED: PROPARACAINE OPHTH 0.5%, 15ML ONE (13:07)
[2020-02-22 14:18] VITALS: BP 129/80
== END 2020-02-22 15:38 | disposition home or self-care (01) ==
LOC: ED 14:20
DX: H53.131 Sudden visual loss, right eye (principal); E11.9 Type 2 diabetes mellitus without complications; I48.91 Unspecified atrial fibrillation; E78.5 Hyperlipidemia, unspecified; K21.9 Gastro-esophageal reflux disease without esophagitis; I10 Essential (primary) hypertension; Z87.891 Personal history of nicotine dependence
CPT/HCPCS: 99283

== ENCOUNTER 2020-03-30 10:04 | Outpatient (CLI) | payer MEDICARE ==
[~2020-03-30 10:04] MED LIST changes: -PANT40TA5 PO; +PANT40TA6 PO
== END 2020-03-30 23:59 | disposition home or self-care (01) ==
LOC: CFH 10:04
PROVIDERS: ATTEND Internal Medicine Cardiovascular Disease
DX: I35.8 Other nonrheumatic aortic valve disorders (principal); I10 Essential (primary) hypertension; I48.0 Paroxysmal atrial fibrillation; R53.83 Other fatigue; I48.91 Unspecified atrial fibrillation; E11.9 Type 2 diabetes mellitus without complications; Z87.891 Personal history of nicotine dependence
CPT/HCPCS: 93306

== ENCOUNTER 2020-12-24 12:52 | Outpatient (CLI) | payer MEDICARE ==
[~2020-12-24 12:52] MED LIST changes: -CYCL-259 PO; +CYCL10TA2 PO; -LACT1CAP37 PO; +LACT1CAP47 PO
== END 2020-12-24 23:59 | disposition home or self-care (01) ==
LOC: CFH 12:52
PROVIDERS: ATTEND Physician Assistant Medical
DX: Z01.818 Encounter for other preprocedural examination (principal); R94.30 Abnormal result of cardiovascular function study, unspecified; I10 Essential (primary) hypertension; I48.0 Paroxysmal atrial fibrillation
CPT/HCPCS: 78452; 93017; A9502

== ENCOUNTER → 2021-02-22 | Outpatient (CLI) | payer MEDICARE ==
[~2021-02-22] MED LIST changes: +ARIP2TAB2 PO; +MAGN400T36 PO; +SERT50TA28 PO; +THIA250T7 PO; +UBID100C24 PO
[2021-02-22 11:32] LABS: CHLORIDE 107 mmol/L (98-107)
[2021-02-22 11:40] LABS: ALANINE AMINOTRANSFERASE 29 U/L (12-78); ALBUMIN 3.8 g/dL (3.4-5.0); ALKALINE PHOSPHATASE 49 U/L (45-117); ANION GAP 4 mmol/L (5-15); BASOPHILS % (AUTO) 1 % (0-1); BILIRUBIN,TOTAL 0.4 mg/dL (0.2-1.0); CALCIUM 8.9 mg/dL (8.5-10.1); CREATININE 1.34 mg/dL (0.7-1.3); EOSINOPHILS % (AUTO) 3 % (1-7); LYMPHOCYTES % (AUTO) 22 % (22-44); MEAN CORPUSCULAR HEMOGLOBIN 27.8 pg (27.5-34.5); MEAN CORPUSCULAR HGB CONC 33.6 g/dL (33.2-36.2); MEAN PLATELET VOLUME 9.9 fL (7.4-10.4); MONOCYTES % (AUTO) 8 % (2-9); NEUTROPHILS % (AUTO) 67 % (42-75); PLATELET COUNT 182 x10^3/uL (130-400); RED CELL DISTRIBUTION WIDTH 15.2 % (9.4-14.8); TOTAL PROTEIN 7.2 g/dL (6.4-8.2)
== END | disposition home or self-care (01) ==
LOC: STAR 10:27
PROVIDERS: ATTEND Orthopaedic Surgery
DX: Z01.818 Encounter for other preprocedural examination (principal); M16.12 Unilateral primary osteoarthritis, left hip; I45.10 Unspecified right bundle-branch block; R00.1 Bradycardia, unspecified
CPT/HCPCS: 36415; 80053; 85025; 87081; 93005

== ENCOUNTER 2021-02-28 09:09 | Observation (INO) | payer MEDICARE ==
[~2021-02-28] VITALS: Ht 185.4 cm; Wt 120.3 kg
[2021-02-28] MEDS ORDERED: DILTIAZEM 30 MG TABLET PO PRN (10:00)
[2021-02-28] MEDS ORDERED: DIPHENHYDRAMINE 50 MG/ML, 1ML IVPush PRN (10:30)
[2021-02-28] MEDS ORDERED: ONDANSETRON 4 MG TABLET PO PRN (10:30)
[2021-02-28] MEDS ORDERED: PROMETHAZINE 12.5 MG SUPP PR PRN (10:30)
[2021-02-28] MEDS ORDERED: ONDANSETRON 2MG/ML, 2ML IVPush PRN ×2 (10:30→12:30)
[2021-02-28] MEDS ORDERED: TRANEXAMIC ACID 1,000 MG in SODIUM CHLORIDE 0.9% 100 ML IVPB ONE (10:30)
[2021-02-28] MEDS ORDERED: PSYLLIUM PACKET PO PRN (10:30)
[2021-02-28] MEDS ORDERED: MAGNESIUM HYDROXIDE 8%, 30ML UDC PO PRN (10:30)
[2021-02-28] MEDS ORDERED: HYDROmorphone 1 MG/ML, 1ML INJ IVPush PRN (10:30)
[2021-02-28] MEDS ORDERED: SENNA/DOCUSATE TABLET PO PRN (10:30)
[2021-02-28] MEDS: POTASSIUM CHLORIDE 20 MEQ in D5%-0.45% NACL 1,000 ML IV SCH ×2 (10:30→21:32)
[2021-02-28] MEDS ORDERED: POLYETHYLENE GLYCOL 17 GM PACKET PO PRN (10:30)
[2021-02-28] MEDS ORDERED: ALUMINUM/MAG/SIMETHICONE 30 ML UDC PO PRN (10:30)
[2021-02-28] MEDS ORDERED: METOCLOPRAMIDE 5 MG/ML, 2ML IVPush PRN (10:30)
[2021-02-28] MEDS ORDERED: CHLORHEXIDINE 15 ML UDC ONE (11:28)
[2021-02-28 11:30] LABS: INTERNATIONAL NORMALIZED RATIO 1.02 (0.93-1.1); PROTHROMBIN TIME 10.9 Seconds (9.6-11.5)
[2021-02-28] MEDS ORDERED: RIVA20TA PO (11:52)
[2021-02-28 11:53] VITALS: BP 137/77
[2021-02-28] MEDS ORDERED: CHLORHEXIDINE 15 ML UDC PO ONE (12:00)
[2021-02-28] MEDS ORDERED: LACTATED RINGERS 1,000 ML IV SCH (12:00)
[2021-02-28] MEDS ORDERED: PROMETHAZINE 25 MG/ML, 1ML IVPush PRN (12:30)
[2021-02-28] MEDS ORDERED: OXYcodone 5 MG/5 ML ORAL.SOL UDC PO PRN (12:30)
[2021-02-28] MEDS ORDERED: MEPERIDINE/PF 25MG/0.5ML IVPush PRN (12:30)
[2021-02-28] MEDS ORDERED: HYDROcodone/APAP 7.5-325MG/15ML UDC PO PRN (12:30)
[2021-02-28] MEDS ORDERED: FENTANYL PF 100 MCG/2ML ONE ×2 (12:40→16:28)
[2021-02-28] MEDS ORDERED: MIDAZOLAM 1 MG/ML, 2ML ONE (12:40)
[2021-02-28] MEDS ORDERED: ONDANSETRON 2MG/ML, 2ML ONE (12:41)
[2021-02-28] MEDS ORDERED: DEXAMETHASONE 4 MG/ML, 1ML ONE (12:41)
[2021-02-28] MEDS ORDERED: GLYCOPYRROLATE 0.2MG/1ML, 5ML ONE (12:41)
[2021-02-28] MEDS ORDERED: NEOSTIGMINE 1 MG/ML, 10ML ONE (12:41)
[2021-02-28] MEDS ORDERED: CEFAZOLIN 1,000 MG ONE (12:41)
[2021-02-28] MEDS ORDERED: PROPOFOL 10 MG/ML, 20ML ONE (12:41)
[2021-02-28] MEDS ORDERED: SUCCINYLCHOLINE 20 MG/ML, 10ML ONE (12:41)
[2021-02-28] MEDS ORDERED: ROCURONIUM 10MG/ML,5ML ONE (12:41)
[2021-02-28] MEDS ORDERED: KETOROLAC 60 MG/2 ML ONE (13:29)
[2021-02-28] MEDS ORDERED: SODIUM CHLORIDE 0.9% 50 ML ONE (13:29)
[2021-02-28] MEDS ORDERED: VANCOMYCIN 1,000 MG ONE (13:29)
[2021-02-28] MEDS ORDERED: EPINEPHRINE 1 MG/ML, 1ML ONE (13:29)
[2021-02-28] MEDS ORDERED: TRANEXAMIC ACID 100 MG/ML, 10ML ONE (13:29)
[2021-02-28] MEDS ORDERED: ROPIvacaine/PF 0.2%, 20 ML ONE (13:29)
[2021-02-28] MEDS ORDERED: DIPHENHYDRAMINE 25 MG CAPSULE PO PRN (14:30)
[2021-02-28] MEDS: GABAPENTIN 300 MG CAPSULE PO SCH ×2 (16:00→21:19)
[2021-02-28] MEDS ORDERED: OXYcodone 5 MG/5 ML ORAL.SOL UDC ONE (16:28)
[2021-02-28] MEDS: FENTANYL PF 100 MCG/2ML IV PRN ×2 (16:42→16:52)
[2021-02-28] MEDS ORDERED: HYDROmorphone 2 MG/ML, 1ML ONE (16:54)
[2021-02-28] MEDS: HYDROmorphone 1 MG/ML, 1ML INJ IVPush PRN ×2 (16:58→17:50)
[2021-02-28] MEDS ORDERED: WARFARIN 5 MG TABLET PO-COUM SCH (18:00)
[2021-02-28] MEDS ORDERED: ATORVASTATIN 40 MG TABLET PO SCH (21:00)
[2021-02-28] MEDS: metFORMIN 500 MG TABLET PO SCH (21:18)
[2021-02-28] MEDS: DOCUSATE 100 MG CAPSULE PO SCH (21:19)
[2021-02-28] MEDS: CEFAZOLIN PMX 1GM/50ML 50 ML IVPB SCH (21:32)
[2021-02-28 21:37] VITALS: BP 118/65
[2021-02-28] MEDS: KETOROLAC 30 MG/1 ML IV SCH (21:45)
[2021-02-28] MEDS: OXYcodone IR 5MG TABLET PO PRN (23:18)
[2021-03-01] MEDS: OXYcodone IR 5MG TABLET PO PRN ×4 (00:02→13:45)
[2021-03-01 00:06] VITALS: BP 116/64
[2021-03-01 04:13] VITALS: BP 110/65
[2021-03-01] MEDS ORDERED: DEXAMETHASONE 4 MG/ML, 1ML IVPush ONE (06:00)
[2021-03-01] MEDS: CEFAZOLIN PMX 1GM/50ML 50 ML IVPB SCH (06:22)
[2021-03-01] MEDS: KETOROLAC 30 MG/1 ML IV SCH ×2 (06:23→13:46)
[2021-03-01] MEDS: POTASSIUM CHLORIDE 20 MEQ in D5%-0.45% NACL 1,000 ML IV SCH (06:42)
[2021-03-01 06:44] VITALS: BP 101/62
[2021-03-01] MEDS ORDERED: PANTOPRAZOLE 40MG TABLET PO SCH (07:30)
[2021-03-01] MEDS: metFORMIN 500 MG TABLET PO SCH (08:41)
[2021-03-01] MEDS: DOCUSATE 100 MG CAPSULE PO SCH (08:42)
[2021-03-01] MEDS: GABAPENTIN 300 MG CAPSULE PO SCH (08:43)
[2021-03-01] MEDS: TAMSULOSIN 0.4 MG CAP.ER.24H PO SCH ×2 (08:43→10:13)
[2021-03-01] MEDS ORDERED: ARIPIPRAZOLE 2 MG TABLET PO SCH (09:00)
[2021-03-01] MEDS ORDERED: CHLORTHALIDONE 25 MG TABLET PO SCH (09:00)
[2021-03-01] MEDS ORDERED: SERTRALINE 50MG TABLET PO SCH (09:00)
[2021-03-01] MEDS ORDERED: LOSARTAN 25MG TABLET PO SCH (09:00)
[2021-03-01] MEDS ORDERED: DILTIAZEM CD 180 MG CAP.ER.24H PO SCH (09:30)
[2021-03-01 12:50] VITALS: BP 114/58
[2021-03-01 13:09] VITALS: BP 124/71
== END 2021-03-01 14:49 | disposition home or self-care (01) ==
LOC: OUT 09:09 → ORIP 10:01 → 4NE 18:04
PROVIDERS: ADMIT Orthopaedic Surgery; ATTEND Orthopaedic Surgery
DX: M16.12 Unilateral primary osteoarthritis, left hip (principal); I12.9 Hypertensive chronic kidney disease with stage 1 through stage 4 chronic kidney disease, or unspecified chronic kidney disease; E11.22 Type 2 diabetes mellitus with diabetic chronic kidney disease; N18.9 Chronic kidney disease, unspecified; E78.2 Mixed hyperlipidemia; I48.91 Unspecified atrial fibrillation; G47.33 Obstructive sleep apnea (adult) (pediatric); E66.9 Obesity, unspecified; E78.00 Pure hypercholesterolemia, unspecified; F32.9 Major depressive disorder, single episode, unspecified; Z87.891 Personal history of nicotine dependence; Z79.899 Other long term (current) drug therapy
CPT/HCPCS: 27130; 36415; 72170; 85014; 85018; 85610; 85730; 96365; 96366; 96375; 97161; C1713; C1776; G0378; J0171; J0330; J0690; J1100; J1170; J1885; J2250; J2405; J2704; J2710; J2795; J3010; J3480; J7120; J3370

== ENCOUNTER → 2021-03-07 | Outpatient (CLI) | payer MEDICARE ==
[2021-03-07 12:59] LABS: INTERNATIONAL NORMALIZED RATIO 1.14 (0.93-1.1); PROTHROMBIN TIME 12.1 Seconds (9.6-11.5)
== END | disposition home or self-care (01) ==
LOC: LAB 12:34
PROVIDERS: ATTEND Internal Medicine Clinical Cardiac Electrophysiology
DX: I48.0 Paroxysmal atrial fibrillation (principal); Z79.01 Long term (current) use of anticoagulants
CPT/HCPCS: 36415; 85610

== ENCOUNTER → 2021-03-14 | Outpatient (CLI) | payer MEDICARE ==
[2021-03-14 12:15] LABS: INTERNATIONAL NORMALIZED RATIO 1.82 (0.93-1.1); PROTHROMBIN TIME 18.9 Seconds (9.6-11.5)
== END | disposition home or self-care (01) ==
LOC: LAB 11:45
PROVIDERS: ATTEND Internal Medicine Clinical Cardiac Electrophysiology
DX: I48.0 Paroxysmal atrial fibrillation (principal); Z79.01 Long term (current) use of anticoagulants
CPT/HCPCS: 36415; 85610

== ENCOUNTER 2021-03-21 11:51 | Outpatient (CLI) | payer MEDICARE ==
[~2021-03-21 11:51] MED LIST changes: +POTA-143 PO; -POTA20TA6 PO
[2021-03-21 12:18] LABS: INTERNATIONAL NORMALIZED RATIO 2.5 (0.93-1.1); PROTHROMBIN TIME 25.6 Seconds (9.6-11.5)
== END 2021-03-21 23:59 | disposition home or self-care (01) ==
LOC: LAB 11:51
PROVIDERS: ATTEND Internal Medicine Clinical Cardiac Electrophysiology
DX: I48.0 Paroxysmal atrial fibrillation (principal); Z79.01 Long term (current) use of anticoagulants
CPT/HCPCS: 36415; 85610

== ENCOUNTER 2021-03-31 13:44 | Outpatient (CLI) | payer MEDICARE ==
[2021-03-31 14:10] LABS: INTERNATIONAL NORMALIZED RATIO 2.17 (0.93-1.1); PROTHROMBIN TIME 22.4 Seconds (9.6-11.5)
== END 2021-03-31 23:59 | disposition home or self-care (01) ==
LOC: LAB 13:44
PROVIDERS: ATTEND Internal Medicine Clinical Cardiac Electrophysiology
DX: I48.0 Paroxysmal atrial fibrillation (principal); Z79.01 Long term (current) use of anticoagulants
CPT/HCPCS: 36415; 85610

== ENCOUNTER → 2021-04-18 | Outpatient (CLI) | payer MEDICARE ==
[2021-04-18 18:32] LABS: INTERNATIONAL NORMALIZED RATIO 2.71 (0.93-1.1); PROTHROMBIN TIME 27.7 Seconds (9.6-11.5)
== END | disposition home or self-care (01) ==
LOC: LAB 17:26
PROVIDERS: ATTEND Internal Medicine Clinical Cardiac Electrophysiology
DX: I48.0 Paroxysmal atrial fibrillation (principal); Z79.01 Long term (current) use of anticoagulants
CPT/HCPCS: 36415; 85610